=== PATIENT | male | born 1975 | race Caucasian/White ===

== ENCOUNTER 2024-06-02 11:24 | Emergency (ER) | payer MEDICARE, SELFPAY ==
[2024-06-02 11:32] VITALS: BP 116/91
[2024-06-02 12:17] VITALS: BMI 21.3
[2024-06-02 12:18] VITALS: BP 119/82
--- NOTE | 2024-06-02 12:21 | EDRN ---
Christy Xiao PA in room w/ pt at this time.
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
[2024-06-02] MEDS: LIDOCAINE 4% PATCH 1 PATCH TOPICAL (12:33)
[2024-06-02] MEDS: TORADOL 30 MG IM (12:34)
[2024-06-02 14:28] VITALS: BP 108/67
== END 2024-06-02 14:29 | disposition home or self-care (01) ==
LOC: EMR 11:24
PROVIDERS: EMERGENCY PHYSICIAN Emergency Medicine; FAMILY PHYSICIAN Family Medicine
DX: S22.32XA Fracture of one rib, left side, initial encounter for closed fracture (principal); V86.56XA Driver of dirt bike or motor/cross bike injured in nontraffic accident, initial encounter; Z87.891 Personal history of nicotine dependence
CPT/HCPCS: 99284; 96372; 71101; 73030